=== PATIENT | female | born 1970 | race Caucasian/White ===

== ENCOUNTER 2018-07-22 17:41 | Emergency (ER) | payer OTHER ==
[~2018-07-22] VITALS: Ht 165.1 cm; Wt 79.4 kg
[~2018-07-22 17:41] MED LIST: ARMOUR THYROID30 MG PO; PROMETHAZINE HC25 M1 PO; ULTRAM 50MG50 MG PO
[2018-07-22 18:24] LABS: BILIRUBIN,URINE NEGATIVE (NEGATIVE); CLARITY,URINE CLEAR (CLEAR); COLOR,URINE YELLOW (YELLOW); KETONES,URINE NEGATIVE (NEGATIVE); LEUKOCYTE ESTERASE ,URINE NEGATIVE (NEGATIVE); NITRITE,URINE NEGATIVE (NEGATIVE); PROTEIN,URINE DIPSTICK NEGATIVE (NEGATIVE); URINE UROBILINOGEN 0.2 mg/dL (0.2 - 1)
[2018-07-22] MEDS ORDERED: METOPROLOL TARTRATE INJ 1 MG/ML VIAL IV NR (18:30)
[2018-07-22 18:34] LABS: BACTERIA,URINE RARE /HPF; EPITHELIAL CELLS,URINE FEW /LPF; RBC,URINE 0-5 /HPF (0-5); WBC,URINE (MAN) 0-5 /HPF (0-5)
[2018-07-22 18:49] LABS: BASOPHILS # (AUTO) 0.1 (0.0-0.1); BASOPHILS % 0.5 % (0.0-1.0); EOSINOPHILS # (AUTO) 0.1 (0.0-0.4); EOSINOPHILS % 0.5 % (0.0-6.0); HEMATOCRIT 43.2 % (34.2-44.1); HEMOGLOBIN 14.6 g/dL (12.0-16.0); LYMPHOCYTES # (AUTO) 2.9 (1.0-3.2); LYMPHOCYTES % 30.2 % (18.0-39.1); MEAN CORPUSCULAR HGB CONC 33.8 g/dL (31-35); MEAN CORPUSCULAR VOLUME 85.9 fL (81-99); MONOCYTES # (AUTO) 0.6 (0.2-0.8); MONOCYTES % 5.7 % (4.4-11.3); NEUTROPHILS # (AUTO) 6.1 (2.1-6.9); NEUTROPHILS % 62.8 % (38.7-80.0); PLATELET COUNT 376 x10e3/uL (140-360); RED BLOOD COUNT 5.03 x10e6/uL (3.6-5.1); RED CELL DISTRIBUTION WIDTH 12.3 % (11.7-14.4)
[2018-07-22 18:56] LABS: INR 0.87; PARTIAL THROMBOPLASTIN TIME 27.7 seconds (23.8-35.5); PROTHROMBIN TIME 12.7 seconds (11.9-14.5)
--- NOTE | 2018-07-22 18:58 | Diagnostic Imaging Report ---
EXAMINATION: CHEST 2 VIEWS INDICATION: Chest pain COMPARISON: None FINDINGS: PA and lateral views TUBES and LINES: None. LUNGS: Lungs are well inflated. Lungs are clear. There is no evidence of pneumonia or pulmonary edema. PLEURA: No pleural effusion or pneumothorax. HEART AND MEDIASTINUM: The cardiomediastinal silhouette is unremarkable. BONES AND SOFT TISSUES: No acute osseous lesion. Soft tissues are unremarkable. UPPER ABDOMEN: No free air under the diaphragm. IMPRESSION: No acute thoracic abnormality. Signed by: Dr. David Abraham M.D. on 07/22/2018 6:55 PM
[2018-07-22 19:03] LABS: ALANINE AMINOTRANSFERASE 22 IU/L (0-55); ALBUMIN 4.1 g/dL (3.5-5.0); ALBUMIN/GLOBULIN RATIO 1.1 (0.8-2.0); ALKALINE PHOSPHATASE 63 IU/L (40-150); ANION GAP 14.7 mmol/L (8-16); BLOOD UREA NITROGEN 11 mg/dL (7-26); BUN/CREATININE RATIO 14 (6-25); CALCIUM 9.6 mg/dL (8.4-10.2); CARBON DIOXIDE 21 mmol/L (22-29); CHLORIDE 108 mmol/L (98-107); CREATINE KINASE 49 IU/L (29-168); CREATININE, SERUM 0.78 mg/dL (0.57-1.11); EST GLOMERULAR FILTRATION RATE > 60 ML/MIN (60-); GLUCOSE 103 mg/dL (74-118); MAGNESIUM 2.2 MG/DL (1.3-2.1); POTASSIUM 3.7 mmol/L (3.5-5.1); SODIUM 140 mmol/L (136-145)
[2018-07-22 20:43] VITALS: BP 142/96
== END 2018-07-22 20:45 | disposition home or self-care (01) ==
LOC: ER 17:41
DX: R07.89 Other chest pain (principal); S29.011A Strain of muscle and tendon of front wall of thorax, initial encounter
CPT/HCPCS: 36415; 71046; 80053; 81001; 82550; 82553; 83735; 83880; 84484; 84702; 85025; 85379; 85610; 85730; 93005; 93971; 99284

== ENCOUNTER 2019-01-21 08:08 | Observation (INO) | payer SELFPAY ==
[~2019-01-21] VITALS: Ht 165.1 cm; Wt 92.3 kg
--- OUTSIDE RECORDS SUMMARY | 2019-01-21 08:12 | XMS REPORT ---
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 Allergies, Adverse Reactions, Alerts This patient has no known allergies or adverse reactions. Medications This patient has no known medications. 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 LUNGS: Lungs are well inflated. Lungs are clear. There is no evidence of pneumonia or pulmonary edema. PLEURA: No pleural effusion or pneumothorax. HEART AND MEDIASTINUM: The cardiomediastinal silhouette is unremarkable. BONES AND SOFT TISSUES: No acute osseous lesion. Soft tissues are unremarkable. UPPER ABDOMEN: No free air under the diaphragm. IMPRESSION: No acute thoracic abnormality. Signed by: Dr. Michelle Abraham M.D. on 07/22/2018 6:55 PM Dictated By: MICHELLE ABRAHAM MD 55 Transcribed By: MODESTO on 07/22/181854 COPY TO: JESS CYR NP
[2019-01-21] MEDS ORDERED: SODIUM CHLORIDE 0.9% 1000ML 1,000 ML IV STA (08:29)
[2019-01-21] MEDS ORDERED: ONDANSETRON HCL INJ 2MG/ML 2ML 2 MG/ML VIAL IV NR (08:30)
--- NOTE | 2019-01-21 08:30 | NUR ---
DR. RIVAS AT BEDSIDE FOR PT EVAL AT THIS TIME.
[2019-01-21 08:47] LABS: BASOPHILS % 0.3 % (0.0-1.0); EOSINOPHILS # (AUTO) 0.1 (0.0-0.4); EOSINOPHILS % 0.7 % (0.0-6.0); HEMATOCRIT 42.8 % (34.2-44.1); HEMOGLOBIN 13.8 g/dL (12.0-16.0); LYMPHOCYTES # (AUTO) 0.7 (1.0-3.2); LYMPHOCYTES % 6.5 % (18.0-39.1); MEAN CORPUSCULAR HEMOGLOBIN 28.5 pg (28-32); MEAN CORPUSCULAR HGB CONC 32.2 g/dL (31-35); MEAN CORPUSCULAR VOLUME 88.2 fL (81-99); MONOCYTES # (AUTO) 0.2 (0.2-0.8); MONOCYTES % 1.9 % (4.4-11.3); NEUTROPHILS # (AUTO) 9.5 (2.1-6.9); NEUTROPHILS % 90.1 % (38.7-80.0); PLATELET COUNT 279 x10e3/uL (140-360); RED BLOOD COUNT 4.85 x10e6/uL (3.6-5.1); RED CELL DISTRIBUTION WIDTH 12.7 % (11.7-14.4)
[2019-01-21 08:53] LABS: INR 0.86; PROTHROMBIN TIME 12.2 seconds (11.9-14.5)
[2019-01-21 08:54] LABS: PARTIAL THROMBOPLASTIN TIME 26.7 seconds (23.8-35.5)
[2019-01-21 09:02] LABS: ALANINE AMINOTRANSFERASE 56 IU/L (0-55); ALBUMIN 3.2 g/dL (3.5-5.0); ALKALINE PHOSPHATASE 71 IU/L (40-150); ANION GAP 12.9 mmol/L (8-16); BLOOD UREA NITROGEN 18 mg/dL (7-26); BUN/CREATININE RATIO 23 (6-25); CARBON DIOXIDE 19 mmol/L (22-29); CHLORIDE 109 mmol/L (98-107); CREATINE KINASE 32 IU/L (29-168); CREATININE, SERUM 0.78 mg/dL (0.57-1.11); EST GLOMERULAR FILTRATION RATE > 60 ML/MIN (60-); GLUCOSE 131 mg/dL (74-118); LIPASE 31 U/L (8-78); MAGNESIUM 1.9 MG/DL (1.3-2.1); POTASSIUM 3.9 mmol/L (3.5-5.1); SODIUM 137 mmol/L (136-145)
--- NOTE | 2019-01-21 09:45 | Diagnostic Imaging Report ---
EXAMINATION: CHEST SINGLE (PORTABLE) INDICATION: Syncope. COMPARISON: Chest radiograph 07/22/2018. FINDINGS: TUBES and LINES: None. LUNGS: Lungs are well inflated. There is no evidence of pneumonia or pulmonary edema. PLEURA: No pleural effusion or pneumothorax. HEART AND MEDIASTINUM: The cardiomediastinal silhouette is unremarkable. BONES AND SOFT TISSUES: No acute osseous abnormality. UPPER ABDOMEN: No free air under the diaphragm. IMPRESSION: No acute radiographic abnormality. Signed by: Dr. Shanae Cardenas MD on 01/21/2019 9:42 AM
--- NOTE | 2019-01-21 10:08 | Diagnostic Imaging Report ---
EXAM: CT Abdomen and Pelvis without contrast INDICATION: Bilateral flank pain. COMPARISON: Report from CT abdomen/pelvis dated 03/17/2015, although the images were not available for review at the time of this dictation. TECHNIQUE: Abdomen and pelvis were scanned utilizing a multidetector helical scanner from the lung base to the pubic symphysis without IV or oral contrast. Coronal and sagittal reformations were obtained. Renal stone protocol was performed. Scan was performed when during portal venous phase. COMPLICATIONS: None RADIATION DOSE: Total DLP: 682.6 mGy*cm Dose modulation, iterative reconstruction, and/or weight based adjustment of the mA/kV was utilized to reduce the radiation dose to as low as reasonably achievable. FINDINGS: LINES and TUBES: None. LOWER THORAX: Moderate hiatal hernia. HEPATOBILIARY: No focal hepatic lesions. Status post cholecystectomy. SPLEEN: No splenomegaly. PANCREAS: No focal masses or ductal dilatation. ADRENALS: No adrenal nodules KIDNEYS/URETERS: Kidneys enhance symmetrically. No hydronephrosis. No cystic or solid mass lesions. No stones. GI TRACT: No abnormal distention, wall thickening, or evidence of bowel obstruction. Appendix is normal. PELVIC ORGANS/BLADDER: Status post hysterectomy. LYMPH NODES: No lymphadenopathy. VESSELS: Unremarkable. PERITONEUM / RETROPERITONEUM: No free air or fluid. BONES: There are mild degenerative changes in the lumbar spine. Grade 1 anterolisthesis of L5 on S1. SOFT TISSUES: There are postsurgical changes involving the anterior abdominal wall. There is a 7.1 x 2.1 x 4.9 cm collection with mild stranding deep to the incision. IMPRESSION: No evidence of renal stone. Status post cholecystectomy and hysterectomy. Postsurgical changes in the midline anterior abdominal wall with a fluid collection, measuring up to 7.1 cm with mild stranding. Suggest correlation with surgical history. Findings may represent a postoperative seroma, but evaluation for abscess is limited in the absence of IV contrast. Signed by: Dr. Shanae Cardenas MD on 01/21/2019 10:05 AM
--- NOTE | 2019-01-21 10:11 | Diagnostic Imaging Report ---
History: Blackout Comparison studies: None Technique: Axial images were obtained from the skull base to the vertex. Coronal and sagittal reconstructions obtained from the axial data. Dose modulation, iterative reconstruction, and/or weight based adjustment of the mA/kV was utilized to reduce the radiation dose to as low as reasonably achievable. Intravenous contrast: None Findings: Scalp/skull: No abnormalities. No fractures, blastic or lytic lesions. Extra-axial spaces: No masses. No fluid collections. Brain sulci: Appropriate for age. Ventricles: The temporal horn horns minimally prominent but otherwise normal in size and configuration. No hydrocephalus. Parenchyma: No abnormal densities. No masses, hemorrhage, acute or chronic cortical vascular insults. Sellar/suprasellar region: No abnormalities Craniocervical junction: Patent foramen magnum. No Chiari one malformation. Incidental finding: Obstruction of the right infundibulum results in diffuse inflammatory opacification of the right frontal, anterior ethmoid and the partially visualized right maxillary sinus IMPRESSION: No intracranial abnormalities. Signed by: Dr. Sulaiman Piña M.D. on 01/21/2019 10:08 AM
--- NOTE | 2019-01-21 10:13 | Diagnostic Imaging Report ---
History: Blackout Comparison studies: None Technique: Axial images were obtained through the cervical region.. Coronal and sagittal images reconstructed from the axial data. Dose modulation, iterative reconstruction, and/or weight based adjustment of the mA/kV was utilized to reduce the radiation dose to as low as reasonably achievable. Intravenous contrast: None Findings: Fractures: None. Soft tissues: No gross abnormalities. Atlantoaxial articulation: Intact. Alignment: Straightening of the usual lordosis is probably positional. No scoliosis. Cervicomedullary junction: No abnormalities. The foramen magnum is patent. Vertebrae: No infection or neoplasm. Degenerative changes: None. IMPRESSION: 1. No abnormalities. 2. Cannot adequately evaluate for ligament, spinal cord and or vascular abnormalities. Signed by: Dr. Sulaiman Piña M.D. on 01/21/2019 10:09 AM
[2019-01-21 10:27] LABS: CLARITY,URINE CLOUDY (CLEAR); COLOR,URINE YELLOW (YELLOW); KETONES,URINE NEGATIVE (NEGATIVE); LEUKOCYTE ESTERASE ,URINE NEGATIVE (NEGATIVE); NITRITE,URINE NEGATIVE (NEGATIVE); PHENCYCLIDINE SCREEN,URINE NEGATIVE (NEGATIVE); PROTEIN,URINE DIPSTICK 1+ (NEGATIVE)
[2019-01-21 10:28] LABS: AMPHETAMINES SCREEN,URINE NEGATIVE (NEGATIVE); BENZODIAZEPINES SCREEN,URINE NEGATIVE (NEGATIVE); BILIRUBIN,URINE NEGATIVE (NEGATIVE); URINE UROBILINOGEN 0.2 mg/dL (0.2 - 1)
[2019-01-21 10:29] LABS: BACTERIA,URINE MODERATE /HPF; EPITHELIAL CELLS,URINE MODERATE /LPF; RBC,URINE 0-5 /HPF (0-5)
[2019-01-21] MEDS ORDERED: KETOROLAC TROMETHAMINE 30 MG/ML VIAL IV NR (11:00)
[2019-01-21] MEDS ORDERED: ONDANSETRON HCL INJ 2MG/ML 2ML 2 MG/ML VIAL IV PRN (11:00)
[2019-01-21] MEDS ORDERED: SODIUM CHLORIDE 0.9% 1000ML 1,000 ML IV ONE (11:15)
[2019-01-21] MEDS: FAMOTIDINE 20 MG/2 ML VIAL IV SCH ×2 (11:22→22:05)
--- NOTE | 2019-01-21 11:50 | NUR ---
RCD PT FROM ER BY BED PT IS ALERT AND ORIENTED VITALS CHECKED PT RESTING ON BED NO SIGNS OF ANY DISTRESS NOTED ADMISSION ASSESSMENT AND HISTORY DONE IV PATENT AND RUNNING NS 100 ML /HR FAMILY AT BED SIDE INSTRUCT PT AND FAMILY REGARDING HOSPITAL POLICY AND ROUTINE BED LOW AND LOCKED CALL LIGHT IN REACH
[2019-01-21 12:09] VITALS: BP 122/77
[2019-01-21 14:13] VITALS: BP 122/77
[2019-01-21 14:20] VITALS: BP 122/77
[2019-01-21 16:19] VITALS: BP 126/72
[2019-01-21 16:33] LABS: CREATINE KINASE 28 IU/L (29-168)
--- NOTE | 2019-01-21 17:05 | NUR ---
PT C/O HEADACHE PAGED AND NOTIFIED DR MONTERROSO GOT NEW ORDERS
[2019-01-21] MEDS ORDERED: HYDROCODONE/APAP 5MG-325MG TAB PO PRN (17:15)
[2019-01-21] MEDS: CEFTRIAXONE SOD 1 GM/NS 50 ML 50 ML IV SCH (17:15)
[2019-01-21] MEDS: ACETAMINOPHEN 325 MG TAB PO PRN (17:25)
--- NOTE | 2019-01-21 18:42 | NUR ---
PT RESTING ON BED BED SIDE REPORT GIVEN TO ONCOMING NURSE
--- NOTE | 2019-01-21 19:00 | NUR ---
Report and rounds completed. Patient in bed watching TV with call light at side. Will continue to monitor.
[2019-01-21 20:00] VITALS: BP 127/75
[2019-01-21 20:05] VITALS: BP 127/75
[2019-01-21] MEDS: KETOROLAC TROMETHAMINE 30 MG/ML VIAL IM PRN (22:05)
[2019-01-22] VITALS (9 sets, daily range): BP systolic 121–162; BP diastolic 71–95
[2019-01-22 02:50] LABS: CREATINE KINASE 26 IU/L (29-168)
[2019-01-22 06:23] LABS: BASOPHILS % 0.4 % (0.0-1.0); EOSINOPHILS # (AUTO) 0.1 (0.0-0.4); EOSINOPHILS % 2.4 % (0.0-6.0); HEMATOCRIT 38.1 % (34.2-44.1); HEMOGLOBIN 12.2 g/dL (12.0-16.0); LYMPHOCYTES # (AUTO) 1.3 (1.0-3.2); LYMPHOCYTES % 27.7 % (18.0-39.1); MEAN CORPUSCULAR HEMOGLOBIN 27.9 pg (28-32); MEAN CORPUSCULAR VOLUME 87.2 fL (81-99); MONOCYTES # (AUTO) 0.2 (0.2-0.8); MONOCYTES % 5.2 % (4.4-11.3); NEUTROPHILS % 64.1 % (38.7-80.0); PLATELET COUNT 242 x10e3/uL (140-360); RED BLOOD COUNT 4.37 x10e6/uL (3.6-5.1); RED CELL DISTRIBUTION WIDTH 13.2 % (11.7-14.4)
[2019-01-22 06:55] LABS: ALANINE AMINOTRANSFERASE 237 IU/L (0-55); ALBUMIN 2.6 g/dL (3.5-5.0); ALBUMIN/GLOBULIN RATIO 0.9 (0.8-2.0); ALKALINE PHOSPHATASE 98 IU/L (40-150); ANION GAP 10.1 mmol/L (8-16); BLOOD UREA NITROGEN 12 mg/dL (7-26); BUN/CREATININE RATIO 18 (6-25); CALCIUM 7.5 mg/dL (8.4-10.2); CARBON DIOXIDE 19 mmol/L (22-29); CHLORIDE 112 mmol/L (98-107); CHOLESTEROL 109 MD/DL (0-199); CREATININE, SERUM 0.66 mg/dL (0.57-1.11); EST GLOMERULAR FILTRATION RATE > 60 ML/MIN (60-); GLUCOSE 93 mg/dL (74-118); HDL CHOLESTEROL 36 MG/DL (40-60); LDL CHOLESTEROL 58 MG/DL (60-130); POTASSIUM 3.1 mmol/L (3.5-5.1); SODIUM 138 mmol/L (136-145); TRIGLYCERIDES 73 MG/DL (0-149)
[2019-01-22] MEDS: ACETAMINOPHEN 325 MG TAB PO PRN ×2 (08:50→16:24)
[2019-01-22] MEDS ORDERED: POTASSIUM CHLORIDE 20 MEQ TAB CR PO NR (10:00)
[2019-01-22] MEDS: FAMOTIDINE 20 MG/2 ML VIAL IV SCH (12:17)
[2019-01-22] MEDS ORDERED: ONDANSETRON HCL 4 MG ORAL DISINTEGRATING TAB PO PRN (12:45)
--- NOTE | 2019-01-22 14:14 | Diagnostic Imaging Report ---
EXAMINATION: CT of the abdomen and pelvis with contrast. TECHNIQUE: Spiral CT images of the abdomen and pelvis were performed from the lung bases to the lesser trochanters after the intravenous administration of 100 cc Isovue-370. Coronal and sagittal reformatted images were obtained. COMPARISON: CT abdomen and pelvis without contrast 01/21/2019 CLINICAL HISTORY:Abdominal pain DISCUSSION: ABDOMEN/PELVIS: LOWER THORAX:Unremarkable. HEPATOBILIARY: No focal hepatic lesions. No intra-or extrahepatic biliary ductal dilation. The gallbladder is absent. SPLEEN: No splenomegaly. PANCREAS: No focal masses or ductal dilatation. ADRENALS: No adrenal nodules. KIDNEYS/URETERS: No hydronephrosis, stones, or solid mass lesions. PELVIC ORGANS/BLADDER: Urinary bladder is unremarkable. Uterus is not identified in keeping with hysterectomy. No adnexal mass. Left ovarian corpus luteum. PERITONEUM/RETROPERITONEUM: No ascites. No pneumoperitoneum. LYMPH NODES: No pelvic sidewall, retroperitoneal, or mesenteric lymphadenopathy. VESSELS: Abdominal aorta, major branch vessels, and iliac arterial systems are patent, without aneurysmal dilatation. Portal vein, splenic vein, and central superior mesenteric vein are patent. GI TRACT: Large bowel shows no evidence of distention or wall thickening. Gas and fecal material are noted throughout. A few diverticula are identified scattered along the descending and sigmoid colon without inflammatory change or wall thickening. The appendix is normal. There is no small bowel dilatation to suggest obstruction. Small hiatal hernia. Stomach is otherwise collapsed. BONES AND SOFT TISSUE: No osseous destructive lesions. 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 As before, postsurgical changes related to mesh repair of ventral abdominal wall hernia. No appreciable interval change in the appearance of the approximately 8 cm transverse x 2 cm AP fluid collection superficial to the inferior aspect of the mesh as seen on series 2 image 46. Average internal attenuation 0-5 Hounsfield units. Minimal faint peripheral enhancement without well-defined rim. IMPRESSION: Postsurgical changes of mesh repair of ventral abdominal wall hernia with a small lentiform superficial fluid collection, which may may represent a postoperative seroma or less likely abscess in the absence of contiguous rim enhancement. Signed by: Dr. Abilio Alcaraz M.D. on 01/22/2019 2:11 PM
[2019-01-22] MEDS ORDERED: SODIUM CHLORIDE 0.9% 50ML 50 ML ONE (14:19)
[2019-01-22] MEDS ORDERED: IOPAMIDOL 370 MG/ML 200 ML INFUS..BTL INJ ONE (14:20)
--- NOTE | 2019-01-22 15:04 | NUR ---
aware of CT results
--- NOTE | 2019-01-22 15:25 | Diagnostic Imaging Report ---
Exam: Brain MRI without IV contrast History: Syncope and collapse, dizziness Comparison studies: Head CT 01/21/2019. Technique: Sagittal and axial T2 FS, axial DWI, axial T2*GRE, axial T1 FLAIR and axial coronal T2 FLAIR. Intravenous contrast: None Findings: Scalp: Normal in signal. No masses. Bone marrow: Normal in signal intensity. Brain sulci: Appropriate for age. Ventricles: Normal in size. No hydrocephalus. Extra axial spaces: No mass, no fluid collection. Parenchyma: No abnormal signal intensities. No masses, hemorrhage, acute or chronic vascular insults. Suprasellar region: No abnormalities. Craniocervical junction: Patent foramen magnum. No Chiari malformation. Vessels: Normal flow-voids in the arteries and sinuses. Incidental findings: Obstructed right ostiomeatal unit with T2 hyperintense inflammatory changes in the right frontal sinus, right ethmoid air cells and right maxillary sinus and inspissated secretions in the right maxillary sinus. IMPRESSION: 1. No intracranial abnormalities. 2. Inflammatory changes in the right paranasal sinuses due to right ostiomeatal unit obstruction. Signed by: Dr. Abilio You M.D. on 01/22/2019 3:21 PM
[2019-01-22] MEDS ORDERED: SODIUM CHLORIDE 0.9% 250ML 250 ML ONE (15:26)
--- NOTE | 2019-01-22 15:31 | History and Physical ---
CHIEF COMPLAINT: Syncope. HISTORY OF PRESENT ILLNESS: This is a 48-year-old female, morbidly obese, reports having status post hernia repair back in she believes in August [address] [facility] and followed up with the surgeon in October 2018, comes into the ED with underlying syncopal episode that occurred at home. The patient reports that she has been having this episodic excruciating abdominal pain that has been ongoing every so often episodically since her surgery. She reports that it is a bilateral kind of like lower abdominal gutter pain that is very excruciating in nature, but then goes away. She said the last time it occurred was about two months ago. She reports that she gets very diaphoretic, starts to clench and then it resolves on its own. But yesterday when this occurred, she got up, walked towards the bathroom and she collapsed on the ground. She cannot recall if she had any chest pain or palpitation prior to this. There is no reports of any seizure-like activity, slurred speech, facial drooping, or any stroke-like symptoms. The patient was seen and evaluated at bedside on the medical floor. Currently, she is doing well with no other issues at this time. Her imaging studies are concerning for underlying seroma probably from postoperative changes. This can likely need to her abdominal pain. It seems like that the patient had a vasovagal episode that led to her underlying collapse. REVIEW OF SYSTEMS: Pertinent positives: Syncopal episode, diaphoresis, abdominal pain, lightheadedness, dizziness. Pertinent negatives: Denies any chest pain, palpitation, dysuria, hematuria, frequency, urgency, cough, congestion, fever, or any other complaints. The rest of 14-point review of systems are reviewed with the patient and are negative. ALLERGIES: CODEINE. HOME MEDICATIONS: None. PAST MEDICAL HISTORY: She reports none. PAST SURGICAL HISTORY: Had a recent abdominal hernia repair back in August 2018, by a physician at [facility]. FAMILY HISTORY: Hypertension, diabetes. SOCIAL HISTORY: No drugs. No alcohol. Does not smoke. Has many tattoos. PHYSICAL EXAMINATION: VITAL SIGNS: Temperature is 98.3, pulse 80, respiratory rate is 20, blood pressure 130/87, pulse ox 95% on room air. GENERAL: Not in acute distress. Alert and oriented x3. Cooperative on examination. HEENT: Head is normocephalic and atraumatic. Eyes; pupils are equal, round, and reactive to light bilaterally. Extraocular movements are intact bilaterally. NECK: Supple. Good range of motion. Throat, no evidence of any erythema or exudate in the posterior pharynx. Has poor dentition. PULMONARY: Clear to auscultation bilaterally. No wheezing, no rales, no rhonchi. No crackles appreciated. CARDIOVASCULAR: Positive S1, S2. No murmurs, rubs, or gallops appreciated. ABDOMEN: Soft, nondistended, and nontender to palpation. Bowel sounds present. MUSCULOSKELETAL: Strength is 5/5 throughout. No evidence of any muscle deficits on examination. No weakness appreciated. NEUROLOGICAL: Cranial nerves 2 through 12 grossly intact. No evidence of any neurological deficits on exam. SKIN: Intact. Warm to touch. Good cap refill. PSYCHIATRIC: Normal affect and mood. EXTREMITIES: No edema. Good range of motion throughout. LAB FINDINGS: Show white count is 4.6, hemoglobin 12, hematocrit is 38, platelets of 242. Coagulation, PT is 12, INR of 0.86, PTT 26.7. D-dimer was normal at 0.43. Urinalysis negative. Urine drug screen negative. MICROBIOLOGY: None. IMAGING STUDIES: Chest x-ray is negative. CT cervical spine negative. CT brain was negative for any acute findings. There is some evidence of some sinusitis seen. CT abdomen and pelvis without contrast shows some postsurgical changes in the midline anterior abdominal wall with fluid collection measuring 7.1 cm with mild stranding. Suggest correlation postoperative seroma, but evaluation for abscess is needed in the absence of IV contrast. IMPRESSION: 1. Syncopal episode, likely to be vasovagal in nature due to abdominal pain. 2. Postoperative seroma seen on CT abdomen and pelvis, likely leading to the abdominal pain. 3. Medical noncompliance. PLAN: At this time, the patient denies any prodrome or chest pain, palpitation, slurred speech, facial drooping or any seizure-like activity or any stroke-like symptoms. I will go ahead and get a Cardiology consultation. Get a 2D echo and carotid ultrasound. We will also get an MRI of the brain. Neurology consultation as well. Based on the CT abdomen and pelvis results, I would also like to get a CT with IV contrast to evaluate this postoperative seroma. This is likely leading to her abdominal pain. If the collection is large, we will consider talking with by IR and possibly General Surgery to see if there can be any further intervention or this could be probably resolved. The collection seems to be very small in nature, does not seem like to be any sort of abscess because the white count is normal and she has no fever. I feel like her underlying syncopal episode is likely vasovagal in nature from excruciating pain from seroma from postoperative changes. But at this time, we will start with these consultants and which I appreciated and we will continue with same plan of care at this time. Plan of care discussed with nursing staff. MD ALCON Miller/MODL /[id number]
--- NOTE | 2019-01-22 16:03 | NUR ---
GAVE PACKET OF INFORMATION WITH [employer] [employer] FOR ASSISTANCE WITH LOW TO NO INCOME TO PATIENT. RESOURCES THAT PATIENT MAY BE ABLE TO FOLLOW UP UPON DISCHARGE. PT EDUCATED ON EACH RESOURCE AND UNDERSTANDING HOW TO FOLLOW UP TO SEE IF QUALIFIED FOR EACH RESOURCE.
[2019-01-22] MEDS: CEFTRIAXONE SOD 1 GM/NS 50 ML 50 ML IV SCH (16:17)
--- NOTE | 2019-01-22 19:10 | NUR ---
Bedside report given to oncoming nurse. Resting in bed. No s/s of acute distress noted.
[2019-01-22] MEDS: FAMOTIDINE 20 MG TAB PO SCH (20:07)
--- NOTE | 2019-01-22 20:20 | NUR ---
Patient received by wheelchair from room 205. Patient assisted to bed in room 176. Oriented to room, environment and call light. A&O x3. Instructed to call for assistance or on the onset of pain or SOB. Call light within reach. Will continue to monitor.
--- NOTE | 2019-01-22 20:21 | NUR ---
CALLED REPORT AND TRANSFER PATIENT TO ROOM 176 FOR CONTINUITY OF CARE. VITAL SIGN STABLE AT THIS TIME
--- NOTE | 2019-01-23 02:13 | Consultation ---
DATE OF CONSULTATION: 01/22/2019 Neurology Consult Note HISTORY OF PRESENT ILLNESS: Ms. Fernández is a 48-year-old right-hand dominant woman with past medical history significant only for occasional migraines, admitted to [facility] on January 21, 2019, following a syncopal event. On the evening of admission, the patient experienced the onset of bilateral flank pain, which is described as a constant sharp pain. Initially, the pain was rated at 3 to 4/10, but rapidly worsened to 9 to 10/10. Shortly after the onset of abdominal pain, Ms. Fernández became flushed and diaphoretic. The patient reports chest pain, rapid heartbeat, shortness of breath, nausea, and dizziness further described as lightheadedness associated with the above symptoms. Ms. Frenández does not report numbness or tingling or an epigastric rising sensation associated with the above symptoms. Thinking she needed to throw up, the patient stood from a recumbent position and made her way to the bathroom. However, shortly before reaching the restroom, the patient lost consciousness and fell to the floor. The duration of unconsciousness is unknown. There was no witnessed generalized tonic clonic activity. Ms. Fernández did not bite her tongue or lose control of her bladder or bowel. According to the patient's mother, who witnessed part of the event, Ms. Fernández was "very pale." Upon regaining consciousness, the patient was lucid and oriented to person, place, and situation. Ms. Fernández does not report a headache or myalgias after regaining consciousness. The patient does not report any abrasions or bruises over her arms or legs. Emergency Medical Services were notified and Ms. Fernández was brought to the emergency center at [facility] for further evaluation of her symptoms. Upon arrival in the emergency center, the patient was afebrile with a blood pressure of 120/76 mmHg and a pulse of 100 beats per minute. The patient's general physical and neurological examinations were documented as being nonfocal. Ms. Fernández was admitted to [facility] for further evaluation and treatment of syncope as well as "acute hepatitis." Towards the end of 2017, Ms. Fernández underwent repair of an umbilical hernia with mesh placement. Since that time, she has experienced the above described symptoms on numerous occasions. However, the symptoms were much more severe yesterday, 01/21/2019. Additionally, the patient has never fainted because of the above symptoms. Ms. Fernández does not report a history of seizures. There is no known family history of seizures. The patient does not report head trauma or meningitis encephalitis. Ms. Fernández does not report visual deficits, dysarthria, aphasia, weakness, numbness, tingling, poor balance, impairment of gait, dizziness, confusion, or cognitive impairment. REVIEW OF SYSTEMS: Chest pain, fast heartbeat, shortness of breath, abdominal pain, nausea, diaphoresis, dizziness which is further described as lightheadedness, and syncope. Otherwise, a 12-point review of systems is negative. PAST MEDICAL HISTORY: Occasional migraines. PAST SURGICAL HISTORY: Total hysterectomy, resection of an abdominal cyst, cholecystectomy, and umbilical hernia repair with mesh placement x2. PAST HOSPITALIZATIONS: Surgeries/procedures as listed. FAMILY MEDICAL HISTORY: Hypertension and diabetes mellitus. The patient's father is from coronary artery disease with a myocardial infarction. Multiple paternal aunts are from breast or ovarian cancer. SOCIAL HISTORY: Ms. Fernández is . 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 The patient does not report current or prior tobacco or recreational drug use. The patient endorses occasional alcohol use. HOME MEDICATIONS: Zyrtec by mouth as needed for seasonal allergies, Zomig by mouth as needed for severe headache. HOSPITAL MEDICATIONS: Tylenol, Rocephin, Pepcid, Toradol, and Zofran. ALLERGIES: CODEINE. NO KNOWN FOOD ALLERGIES. NO KNOWN ALLERGIES TO LATEX. NO KNOWN ALLERGIES TO IODINE OR OTHER CONTRAST MATERIALS. PHYSICAL EXAMINATION: VITAL SIGNS: Height 65 inches, weight 203 pounds, BMI 33.9 kg/m2, blood pressure 162/94 mmHg, pulse 80 beats per minute, respiratory rate 20 breaths per minute, and oxygen saturation 100% on room air. GENERAL: The patient is awake and alert, does not appear distressed. Obese. HEENT: Normocephalic and atraumatic. Pupils are equal, round, and reactive to light. Moist mucous membranes. NECK: Supple. No appreciable thyromegaly. No appreciable carotid bruits. CARDIOVASCULAR: S1, S2, regular rate and rhythm. No murmurs, rubs, or gallops. RESPIRATORY: Clear to auscultation bilaterally. No wheezes, rhonchi, or rales. EXTREMITIES: The skin is warm and dry. No clubbing, cyanosis, or edema. The posterior tibial and dorsalis pedis pulses are 2+ and symmetric. SKIN: No rashes or lesions. NEUROLOGIC: Memory/Attention: The patient is awake and alert, oriented to person, place, time, and situation. Cranial Nerves: Cranial nerve I - not tested. Cranial nerves II, III, IV, and - pupils are equal and round, reactive briskly to light (from 4 mm to 2 mm). Extraocular movements intact. No nystagmus. Cranial nerve V - sensation to light touch and pinprick is intact in the bilateral V1 through V3 distributions. Strength in the temporalis and masseter muscles are within normal limits. Cranial nerve VII - the face is symmetric as are all facial movements. Strength is within normal limits. Cranial nerve VIII - hearing is intact to finger rub bilaterally. Cranial nerves IX, X - the soft palate elevates equally and symmetrically. Cranial nerve XI - normal strength of the bilateral sternocleidomastoid and trapezius muscles. Cranial nerve XII - the tongue protrudes midline and moves symmetrically from [id number]. Strength: Bulk is normal. Strength is 5/5 in the bilateral deltoids, biceps, triceps, wrist flexors and extensors, finger flexors and extensors, intrinsic hand muscles, hip flexors, knee flexors and extensors, ankle dorsiflexion and plantar flexion, and intrinsic foot muscles. Tone is normal. DTRs: Deep tendon reflexes are 2+ and symmetric at the triceps, biceps, brachioradialis, patellas, and Achilles. Plantar responses are flexor bilaterally. Sensation: Sensation is intact to light touch and pinprick in both arms and both legs. Cerebellar: Cxcybg-erae-nfbcyg and heel-rojas movements are intact without dysmetria or other impairment. Gait: Deferred. Speech: Spontaneous speech is normal without appreciable dysarthria or aphasia. Repetition is intact. Involuntary Movements: None. Pronator Drift: None. LABORATORY DATA: The most recent comprehensive metabolic panel is significant for potassium of 3.1, chloride of 112, carbon dioxide of 19, calcium of 7.5, elevated AST of 182, elevated ALT of 237, albumin of 5.6, and globulin of 2.6. Cardiac enzymes are negative x3. Hemoglobin A1c 5.4. Lipase 31. Total cholesterol 109, triglycerides 73, LDL cholesterol 58, and HDL cholesterol 36. The CBC with differential and platelets are unremarkable. A coagulation profile is within normal limits. Quantitative D- dimer is 0.43. A urinalysis revealed cloudy urine with a specific gravity of 1.030, 1+ protein, 6-10 white blood cells, moderate urine epithelial cells, and moderate urine bacteria. A urine drug screen was negative. DIAGNOSTIC STUDIES: Electrocardiogram on 01/21/2019: Normal sinus rhythm at 93 beats per minute. Left axis deviation. Right bundle-branch block. Chest x-ray on 01/21/2019: No acute radiographic abnormality. CT of the brain without contrast on 01/21/2019: On my review, there is no evidence of recent large territorial ischemia, hemorrhage, mass, or mass effect. Cerebral volumes are appropriate for age. There are no findings suspicious for chronic small- vessel ischemic disease. CT of the cervical spine on 01/21/2019: No abnormalities. Cannot adequately evaluate for ligament, spinal cord, and/or vascular abnormalities. CT of the abdomen and pelvis on 01/21/2019: No evidence of renal stone. Status post cholecystectomy and hysterectomy. Postsurgical changes in the midline anterior abdominal wall with a fluid collection, measuring up to 7.1 cm with mild stranding. Suggest correlation with surgical history. Findings may represent a postoperative seroma, but evaluation for abscess is limited in the absence of IV contrast. Echocardiogram on 01/22/2019: Ejection fraction 50% to 55%. Concentric left ventricular hypertrophy. Bilateral carotid artery ultrasound with Doppler on 01/22/2019: There is atherosclerosis without hemodynamically significant stenosis at the bilateral carotid bulbs, bilateral carotid bifurcations, and right internal carotid artery. Flow is antegrade in the bilateral vertebral arteries. MRI of the brain without contrast on 01/22/2019: On my review, there is no evidence of recent or remote large territorial ischemia, hemorrhage, mass, or mass effect. Cerebral volumes are appropriate for age. There are no findings suggestive of chronic small vessel ischemic disease. CT of the abdomen and pelvis with contrast on 01/22/2019: Postsurgical changes of mesh repair of ventral abdominal wall hernia with a small and deformed superficial fluid collection, which may represent a postoperative seroma or less likely abscess in the absence of continuous rim enhancement. ASSESSMENT AND PLAN: Ms. Fernández is a 48-year-old right-hand dominant woman with past medical history significant only for occasional migraines, admitted to [facility] on January 21, 2019, following a syncopal event. The patient's neurological examination is nonfocal. Her laboratory data and other diagnostic studies have been reviewed and are documented above. In my opinion, Ms. Fernández experienced a vasovagal syncope on January 21, 2019. There is nothing in the history, neurological examination, or neurodiagnostic studies suggestive of seizure or other neurological disorder. There are no recommendations for further evaluation or treatment from Neurology. Thank you for this consultation. Please call again with any questions or concerns. TIME SPENT: 50 minutes. Emily Abad MD CP/IRENE /[id number] MTDD
[2019-01-23 04:00] VITALS: BP 155/88
[2019-01-23] MEDS: ACETAMINOPHEN 325 MG TAB PO PRN (05:05)
[2019-01-23 05:45] LABS: BASOPHILS % 0.6 % (0.0-1.0); EOSINOPHILS # (AUTO) 0.2 (0.0-0.4); EOSINOPHILS % 3.7 % (0.0-6.0); HEMATOCRIT 37.5 % (34.2-44.1); HEMOGLOBIN 12.1 g/dL (12.0-16.0); LYMPHOCYTES # (AUTO) 2.3 (1.0-3.2); LYMPHOCYTES % 34.6 % (18.0-39.1); MEAN CORPUSCULAR HEMOGLOBIN 28.1 pg (28-32); MEAN CORPUSCULAR HGB CONC 32.3 g/dL (31-35); MEAN CORPUSCULAR VOLUME 87.2 fL (81-99); MONOCYTES # (AUTO) 0.5 (0.2-0.8); NEUTROPHILS # (AUTO) 3.5 (2.1-6.9); NEUTROPHILS % 53.9 % (38.7-80.0); PLATELET COUNT 260 x10e3/uL (140-360); RED CELL DISTRIBUTION WIDTH 13.2 % (11.7-14.4)
[2019-01-23 06:15] LABS: ANION GAP 8.3 mmol/L (8-16); BLOOD UREA NITROGEN 9 mg/dL (7-26); BUN/CREATININE RATIO 13 (6-25); CALCIUM 8.3 mg/dL (8.4-10.2); CARBON DIOXIDE 22 mmol/L (22-29); CHLORIDE 109 mmol/L (98-107); CREATININE, SERUM 0.72 mg/dL (0.57-1.11); EST GLOMERULAR FILTRATION RATE > 60 ML/MIN (60-); GLUCOSE 96 mg/dL (74-118); SODIUM 135 mmol/L (136-145)
[2019-01-23 06:16] LABS: POTASSIUM 4.3 mmol/L (3.5-5.1)
[2019-01-23 06:36] LABS: THYROID STIMULATING HORMONE 1.596 uIU/mL (0.350-4.940)
[2019-01-23 07:30] VITALS: BP 146/80
[2019-01-23] MEDS: FAMOTIDINE 20 MG TAB PO SCH (09:38)
[2019-01-23] MEDS: KETOROLAC TROMETHAMINE 30 MG/ML VIAL IM PRN (10:11)
--- NOTE | 2019-01-23 10:47 | NUR ---
SOCIAL WORK INITIAL ASSESSMENT Customer Service Coordinator to bedside to discuss plan of care with patient/family. CM/SW role and care transitions discussed. Anticipated discharge plan discussed along with duration of care. CM/SW discussed patients right to make decisions in care. CM/SW work hours given. 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 Name and number was also written on the patients whiteboard. Patient verbalized understanding of discussion. CM will follow-up with ongoing discharge and transition of care needs.
--- NOTE | 2019-01-25 08:54 | Discharge Summary ---
FINAL DISCHARGE DIAGNOSES: 1. Syncopal episode secondary to vasovagal. 2. Postoperative small, mild fluid collection in the abdomen non-drainable seen from a postoperative seroma. 3. Medical noncompliance. CONSULTANTS: Neurology and Cardiology. PHYSICAL EXAMINATION: VITAL SIGNS: Temperature is 97.6, pulse 79, respiratory rate is 19, blood pressure is 146/80, and pulse ox 99% on room air. LABORATORY FINDINGS: Show white count 6.5, hemoglobin 12, hematocrit 37.5, and platelets of 260. Coagulation; PT 12, INR 0.86, PTT 26.7. D-dimer 0.43, which is normal. Chemistry; sodium 135, potassium 4.3, chloride 109, bicarb 22, anion gap of 8.3, BUN 9, creatinine is 0.72, calcium is 8.3, total bilirubin is 0.5. Troponins were negative. Albumin is 2.6, LDL 58, TSH is 1.5, lipase is 31. Urinalysis is negative. Urine drug screen was negative. IMAGING STUDIES: Chest x-ray negative. CT cervical spine is negative. CT brain negative. CT abdomen and pelvis showed a small anterior abdominal wall, fluid collection measures 7.1 cm with mild stranding. This is likely due to from postoperative seroma. MRI of the brain negative. Prior ultrasound reviewed showing no evidence of severe stenosis. A 2D echo was found to be normal. CT abdomen and pelvis with IV contrast abdominal hernia with a small superficial fluid collection likely to be postoperative seroma and less likely to be an abscess due to the absence of a contiguous rim enhancement. HOSPITAL COURSE: This is a 48-year-old female, who comes into the ED after having a syncopal episode that occurred at home. According to the reports it sounds like the patient was standing upfront while she was asleep and likely vasovagal and landed on the ground. There was no reports of any seizure-like activity, stroke-like symptoms, or any slurred speech. No reports of any chest pain or palpitations. Cardiology was consulted, felt to be likely vasovagal in nature. A 2D echo was found to be normal. Carotid ultrasound showed some mild stenosis, but no further workup needed. Neurology was consulted. MRI of the brain was negative. CT brain was negative. CT cervical spine was negative as well. No further workup was needed by neurologist, presently vasovagal in nature. CT abdomen and pelvis showed a superficial postoperative seroma, likely leading to her abdominal pain. I had a long discussion with the radiologist by phone and this is likely to be a very small fluid collection and unable to even stick a needle in due to the size being 7 cm in nature. This is not an abscess according to the radiologist due to contiguous rims and superficial in nature. It was felt by Radiology, this is likely a small fluid collection from postoperative changes and less likely to be an abscess. The patient has no white count, no fever, doing well otherwise. She has been cleared from all consultants to be discharged home. Once again I reviewed the imaging studies with consultation at bedside and discussed a small superficial seroma seen, but no further intervention was needed. On the day of discharge, vital signs stable, labs reviewed and stable. The patient seen, evaluated, examined thoroughly on the day of discharge and no other complaints. The patient verbalized understanding and agreed to plan of care. A followup appointment as an outpatient with the primary care physician in 1 week and Neurology and Cardiology in 2 weeks' time. MEDICATIONS: See med reconciliation form. DISPOSITION: Home. CONDITION: Stable. DIET: Heart healthy. In the event of any worsening symptoms, the patient was advised to come back to the ED for further evaluation. Discharge summary took greater than 35 minutes. MD ALCON Miller/MANAVL /[id number]
== END 2019-01-23 11:18 | disposition home or self-care (01) ==
LOC: ER 08:08 → ERHOLD 11:18 → MED/SURG2 11:54 → IMCU 01-22 20:29
PROVIDERS: ADMIT Internal Medicine; ATTEND Internal Medicine
DX: R55 Syncope and collapse (principal); Z82.49 Family history of ischemic heart disease and other diseases of the circulatory system; L76.34 Postprocedural seroma of skin and subcutaneous tissue following other procedure; Z88.5 Allergy status to narcotic agent; G43.909 Migraine, unspecified, not intractable, without status migrainosus; E66.9 Obesity, unspecified; Z68.33 Body mass index [BMI] 33.0-33.9, adult; Z91.19 Patient's noncompliance with other medical treatment and regimen
CPT/HCPCS: 36415 ×3; 70450; 70551; 71045; 72125; 74176; 74177; 80048; 80053 ×2; 80061; 80307; 81001; 82550 ×2; 82553 ×2; 83036; 83690; 83735; 84443; 84484 ×2; 85025 ×3; 85379; 85610; 85730; 93005; 93306; 93880; 99284; G0378 ×3; J0696 ×2; J1885 ×2; J2405; J7030; J7050; Q9967